=== PATIENT | male | born 1955 | race Native Hawaiian/Other Pacific Islander ===

== ENCOUNTER 2016-05-13 17:54 | Outpatient (CLI) | payer OTHER | END 2016-05-13 18:54 | disposition home or self-care (01) | LOC: RAD 17:54 | DX: M79.602 Pain in left arm (principal) ==

== ENCOUNTER 2017-08-20 08:30 | Outpatient (CLI) | payer OTHER ==
[2017-08-20 11:27] LABS: PLATELET COUNT 295 K/uL (142-355)
[2017-08-20 12:03] LABS: POTASSIUM 4.2 mmol/L (3.6-5.2)
== END 2017-08-20 19:19 | disposition home or self-care (01) ==
LOC: LABW 08:30
PROVIDERS: Nurse Practitioner Family
DX: E11.9 Type 2 diabetes mellitus without complications (principal); R26.2 Difficulty in walking, not elsewhere classified; E78.01 Familial hypercholesterolemia; E01.8 Other iodine-deficiency related thyroid disorders and allied conditions; E66.3 Overweight; Z79.899 Other long term (current) drug therapy; Z51.81 Encounter for therapeutic drug level monitoring; R26.81 Unsteadiness on feet; Z12.5 Encounter for screening for malignant neoplasm of prostate
CPT/HCPCS: 36415; 80053; 80061; 81000; 82043; 82306; 82570; 82607; 83036; 83735; 84153; 84439; 84443; 85027

== ENCOUNTER 2017-09-03 08:28 | Outpatient (CLI) | payer OTHER ==
[2017-09-03 08:51] LABS: PLATELET COUNT 276 K/uL (142-355)
[2017-09-03 08:56] LABS: POTASSIUM 4.8 mmol/L (3.6-5.2)
== END 2017-09-03 19:12 | disposition home or self-care (01) ==
LOC: LABW 08:28
PROVIDERS: Physician Assistant
DX: R07.89 Other chest pain (principal)
CPT/HCPCS: 36415; 80053; 80061; 82248; 85027

== ENCOUNTER 2017-10-06 09:11 | Outpatient (CLI) | payer OTHER | END 2017-10-06 23:17 | disposition home or self-care (01) | LOC: LABW 09:11 | DX: E03.8 Other specified hypothyroidism (principal); Z79.899 Other long term (current) drug therapy; Z51.81 Encounter for therapeutic drug level monitoring | CPT/HCPCS: 36415; 84443 ==

== ENCOUNTER 2017-12-29 08:40 | Outpatient (CLI) | payer OTHER | END 2017-12-29 19:16 | disposition home or self-care (01) | LOC: LABW 08:40 | DX: E11.9 Type 2 diabetes mellitus without complications (principal); E29.1 Testicular hypofunction | CPT/HCPCS: 36415; 83036; 84402; 84403 ==

== ENCOUNTER 2019-07-03 14:10 | Inpatient (IN) | payer OTHER ==
[~2019-07-03] VITALS: Ht 165.1 cm; Wt 75.3 kg
[2019-07-03 14:31] VITALS: BP 100/56; TEMP 99.2
[2019-07-03 18:03] LABS: PLATELET COUNT 293 K/uL (142-355)
[2019-07-03 18:21] LABS: POTASSIUM 4.2 mmol/L (3.6-5.2)
[2019-07-04] VITALS (7 sets, daily range): BP systolic 91–130; BP diastolic 49–64; TEMP 98.3–102.4; Ht 165.1 cm; Wt 75.3 kg
[2019-07-04] MEDS ORDERED: DULOXETINE HCL30 MG PO (00:09)
[2019-07-04] MEDS ORDERED: ASA LOW DOSE81 MG PO (00:24)
[2019-07-04] MEDS ORDERED: TIROSINT175 MCG PO (00:25)
[2019-07-04] MEDS ORDERED: ZOFRAN8 MG PO (00:26)
[2019-07-04] MEDS ORDERED: D31000 UNIT PO (00:27)
[2019-07-04] MEDS ORDERED: ISOS30TA17 PO (00:28)
[2019-07-04] MEDS ORDERED: TAMS0.4C PO (00:29)
[2019-07-04] MEDS ORDERED: NORCO 10/325***1 TAB PO (00:30)
[2019-07-04] MEDS ORDERED: CALCIUM & MAGNE1 TAB PO (00:31)
[2019-07-04] MEDS ORDERED: PLAIN NIACIN500 MG PO (00:31)
[2019-07-04] MEDS ORDERED: METF100038 PO (00:33)
[2019-07-04] MEDS ORDERED: GABA400C2 PO (00:34)
[2019-07-04] MEDS ORDERED: LIPITOR80 MG PO (00:34)
[2019-07-04 05:48] LABS: PLATELET COUNT 229 K/uL (142-355)
[2019-07-04 14:18] LABS: POTASSIUM 3.4 mmol/L (3.6-5.2)
[2019-07-05 04:00] VITALS: BP 95/43; TEMP 98.2
[2019-07-05 06:16] LABS: PLATELET COUNT 235 K/uL (142-355)
[2019-07-05 06:20] LABS: POTASSIUM 3.4 mmol/L (3.6-5.2)
[2019-07-05 08:00] VITALS: BP 108/49; TEMP 99.9
[2019-07-05 12:00] VITALS: BP 99/45; TEMP 98.4
[2019-07-05 16:00] VITALS: BP 112/53; TEMP 99.5
[2019-07-05 20:00] VITALS: BP 124/52; TEMP 99.7
[2019-07-05 23:47] VITALS: BP 108/44; TEMP 100.6
[2019-07-06 03:50] VITALS: BP 116/66; TEMP 99.3
[2019-07-06 05:54] LABS: PLATELET COUNT 262 K/uL (142-355)
[2019-07-06 06:02] LABS: POTASSIUM 4.2 mmol/L (3.6-5.2)
[2019-07-06 08:00] VITALS: BP 118/51; TEMP 98.9
[2019-07-06 12:00] VITALS: BP 109/47; TEMP 99.4
[2019-07-06 16:00] VITALS: BP 121/60; TEMP 98.9
[2019-07-06] MEDS ORDERED: LEVAQUIN250 MG PO (17:00)
== END 2019-07-06 17:40 | disposition home or self-care (01) | DRG 872 ==
LOC: ED 14:10 → MED/SURG 20:09
PROVIDERS: Internal Medicine; ADMIT Emergency Medicine
DX: A41.89 Other specified sepsis (principal); N10 Acute pyelonephritis; E87.1 Hypo-osmolality and hyponatremia; N17.8 Other acute kidney failure; E11.9 Type 2 diabetes mellitus without complications; E03.8 Other specified hypothyroidism; I10 Essential (primary) hypertension; G62.9 Polyneuropathy, unspecified; I25.10 Atherosclerotic heart disease of native coronary artery without angina pectoris; N40.0 Benign prostatic hyperplasia without lower urinary tract symptoms; E78.49 Other hyperlipidemia; F32.89 Other specified depressive episodes; E87.6 Hypokalemia; J44.9 Chronic obstructive pulmonary disease, unspecified; Z86.73 Personal history of transient ischemic attack (TIA), and cerebral infarction without residual deficits
CPT/HCPCS: 36415; 80048; 80053; 81000; 82570; 83605; 84300; 84443; 85027; 87040; 87077; 87086; 87088; 87186; 96360; 96376; 99284; J0696; J1650; J1815; J1885; J1956; J2543; J3370

== ENCOUNTER 2019-09-29 19:56 | Emergency (ER) | payer OTHER ==
[~2019-09-29] VITALS: Ht 165.1 cm; Wt 69.4 kg
[~2019-09-29 19:56] MED LIST: ASA LOW DOSE81 MG PO; CALCIUM & MAGNE1 TAB PO; D31000 UNIT PO; DULOXETINE HCL30 MG PO; GABA400C2 PO; ISOS30TA17 PO; LEVAQUIN250 MG PO; LIPITOR80 MG PO; METF100038 PO; NORCO 10/325***1 TAB PO; PLAIN NIACIN500 MG PO; TAMS0.4C PO; TIROSINT175 MCG PO; ZOFRAN8 MG PO
[2019-09-29 20:05] VITALS: TEMP 100.7
[2019-09-29 21:21] LABS: PLATELET COUNT 249 K/uL (142-355)
[2019-09-29 21:26] LABS: POTASSIUM 4.2 mmol/L (3.6-5.2)
[2019-09-29 22:49] VITALS: BP 112/52
== END 2019-09-29 22:51 | disposition home or self-care (01) ==
LOC: ED 19:56
PROVIDERS: Family Medicine
DX: N39.0 Urinary tract infection, site not specified (principal); E11.65 Type 2 diabetes mellitus with hyperglycemia; Z79.84 Long term (current) use of oral hypoglycemic drugs; M54.5 Low back pain; G89.29 Other chronic pain
CPT/HCPCS: 80053; 81000; 85027; 87077; 87086; 87088; 87186; 96365; 96374; 96375; 99284; J0696; J1885

== ENCOUNTER 2021-03-28 13:51 | Outpatient (CLI) | payer OTHER | END 2021-03-28 20:18 | disposition home or self-care (01) | LOC: LABW 13:51 | PROVIDERS: ATTEND Nurse Practitioner Family | DX: M25.50 Pain in unspecified joint (principal) | CPT/HCPCS: 36415; 85652; 86140 ==

== ENCOUNTER 2021-04-07 09:00 | Outpatient (CLI) | payer OTHER | END 2021-04-07 20:58 | disposition home or self-care (01) | LOC: CT 09:00 | PROVIDERS: ATTEND Nurse Practitioner Family | DX: R93.1 Abnormal findings on diagnostic imaging of heart and coronary circulation (principal); I65.21 Occlusion and stenosis of right carotid artery | CPT/HCPCS: 36415; 82565; 84520; Q9963 ==

== ENCOUNTER 2021-04-16 11:28 | Outpatient (CLI) | payer OTHER ==
[2021-04-16 11:48] LABS: PLATELET COUNT 291 K/uL (142-355)
[2021-04-16 12:00] LABS: POTASSIUM 4.3 mmol/L (3.6-5.2)
== END 2021-04-16 20:26 | disposition home or self-care (01) ==
LOC: LABW 11:28
PROVIDERS: ATTEND Physician Assistant Medical
DX: I63.9 Cerebral infarction, unspecified (principal)
CPT/HCPCS: 80053; 80061; 85027

== ENCOUNTER 2022-04-09 14:24 | Observation (INO) | payer OTHER ==
[~2022-04-09] VITALS: Ht 165.1 cm; Wt 75.0 kg
[2022-04-09] VITALS (15 sets, daily range): BP systolic 104–153; BP diastolic 36–55; TEMP 97.5–98.5; Ht 165.1 cm; Wt 75.0 kg
[2022-04-09 15:15] LABS: PLATELET COUNT 293 K/uL (142-355)
[2022-04-09 15:23] LABS: POTASSIUM 4.6 mmol/L (3.6-5.2)
[2022-04-09 15:37] LABS: PARTIAL THROMBOPLASTIN TIME 24.3 SECONDS (24.5-33.6)
[2022-04-10 03:29] VITALS: BP 109/68; TEMP 98.4
[2022-04-10 04:17] LABS: PLATELET COUNT 254 K/uL (142-355)
[2022-04-10 04:49] LABS: POTASSIUM 3.9 mmol/L (3.6-5.2)
[2022-04-10 08:00] VITALS: BP 156/48; TEMP 98.1
[2022-04-10] MEDS ORDERED: CLOPIDOGREL75 MG PO (09:37)
[2022-04-10] MEDS ORDERED: SOLIQUA 100/331 INJ SC (09:38)
[2022-04-10] MEDS ORDERED: DIAZ5TAB20 PO (09:39)
[2022-04-10] MEDS ORDERED: SYNJARDY 12.5-11 TAB PO (09:40)
[2022-04-10] MEDS ORDERED: GABA300C2 PO (09:42)
[2022-04-10] MEDS ORDERED: NITR0.4S2 SL (09:42)
[2022-04-10] MEDS ORDERED: TOPAMAX25 MG PO (09:43)
[2022-04-10] MEDS ORDERED: EZET10TA13 PO (09:43)
[2022-04-10] MEDS ORDERED: NIACIN TR1000 MG PO (09:44)
[2022-04-10] MEDS ORDERED: ASPI-93 PO (09:46)
[2022-04-10] MEDS ORDERED: LEVO-T175 MCG PO (09:47)
[2022-04-10] MEDS ORDERED: BENADRYL ALLERG25 M2 PO (09:47)
[2022-04-10 12:00] VITALS: BP 141/48; TEMP 97.9
== END 2022-04-10 12:25 | disposition home or self-care (01) ==
LOC: ED 14:24 → MED/SURG 19:15
PROVIDERS: ADMIT Emergency Medicine; ATTEND Internal Medicine
DX: R47.81 Slurred speech (principal); I10 Essential (primary) hypertension; J44.9 Chronic obstructive pulmonary disease, unspecified; I69.354 Hemiplegia and hemiparesis following cerebral infarction affecting left non-dominant side; E78.49 Other hyperlipidemia; N40.0 Benign prostatic hyperplasia without lower urinary tract symptoms; E03.8 Other specified hypothyroidism; R53.1 Weakness; Z79.899 Other long term (current) drug therapy; Z51.81 Encounter for therapeutic drug level monitoring; E11.42 Type 2 diabetes mellitus with diabetic polyneuropathy; E86.0 Dehydration
CPT/HCPCS: 36415; 80053; 81002; 82948; 83880; 84443; 84484; 85027; 85379; 85610; 85730; 87635; 93005; 96360; 96361; 96365; 99220; 99284; G0378; U0003